=== PATIENT | female | born 1935 | race Caucasian/White ===

== ENCOUNTER 2016-08-01 11:42 | Emergency (ER) | payer MEDICARE, OTHER ==
--- NOTE | 2016-08-01 12:02 | ED.PDOC ---
History of Present Illness - General Chief Complaint: Blood Pressure Problem Stated Complaint: ELEVATED BP Time Seen by Provider: 08/01/16 11:57 Source: patient Exam Limitations: no limitations - History of Present Illness Initial Comments: PT WITH ELEVATED BP AT HOME. CALLED HH WHO WENT TO SEE HER. SBP > 200. TOOK HER MORNING MEDS WITH NO CHANGE. CAME TO ER FOR EVALUATION. Timing/Duration: 1-3 hours Severity: moderate Improving Factors: nothing Worsening Factors: nothing Associated Symptoms: shortness of breath Allergies/Adverse Reactions: Allergies Atorvastatin [From Lipitor] Allergy (Unknown, Unverified 10/09/12 08:52) listed swing bed adm 10/07/12 Calcitonin [From Miacalcin] Allergy (Unknown, Unverified 10/09/12 08:54) licted swing bed adm 10/07/12 Fenofibrate [From Tricor] Allergy (Unknown, Unverified 10/09/12 08:50) listed swing bed adm 10/07/12 Hydrocodone Allergy (Unknown, Verified 10/09/12 08:51) listed swing bed adm 10/07/12 Penicillins Allergy (Unverified 06/15/12 12:34) Home Medications: Ambulatory Orders Metoprolol Succinate [Metoprolol Succinate ER] 100 mg PO DAILY 08/24/12 Timolol [Betimol] 0.25 % OP DAILY 08/24/12 Famotidine [Pepcid AC] 20 mg PO BID 10/07/12 Metformin HCl [Fortamet] 500 mg PO DAILY #0 10/07/12 Phenol (Antiseptic) [Chloraseptic] 1.4 % MT 10/07/12 Tramadol HCl 50 - 100 mg PO PRN PRN 10/07/12 Methylprednisolone [Medrol Dose Carlos] 4 mg PO DAILY #1 tab 08/01/16 Review of Systems - Review of Systems Constitutional: States: other - WIGGINS, DIZZINESS. Denies: chills, fever EENTM: Denies: eye pain, blurred vision, ear pain Respiratory: States: short of breath. Denies: cough Cardiology: Denies: chest pain, palpitations Gastrointestinal/Abdominal: Denies: nausea, vomiting Genitourinary: Denies: dysuria, frequency Musculoskeletal: Denies: back pain, neck pain Neurological: States: headache. Denies: numbness, weakness Endocrine: States: no symptoms reported Hematologic/Lymphatic: States: no symptoms reported Past Medical History (General) - Patient Medical History Hx Seizures: No Hx Stroke: No Hx Asthma: No Hx of COPD: No Hx Cardiac Disorders: Yes - SVT Hx Congestive Heart Failure: No Hx Pacemaker: No Hx Hypertension: Yes Hx Diabetes: Yes Hx MRSA: No - Social History Hx Alcohol Use: No Hx Substance Use: No Hx Physical Abuse: No Hx Emotional Abuse: No Family Medical History - Family History Mother Family History: Unknown Physical Exam - Physical Exam General Appearance: Alert, Comfortable Eye Exam: bilateral normal Ears, Nose, Throat: hearing grossly normal, normal ENT inspection Neck: full range of motion, supple, normal inspection Respiratory: lungs clear, normal breath sounds, no respiratory distress Cardiovascular/Chest: regular rate, rhythm, no murmur Gastrointestinal/Abdominal: non tender, no organomegaly Back Exam: normal inspection, no CVA tenderness Extremity: normal range of motion, normal inspection Neurologic: other - A/A/A Skin Exam: normal color Lymphatic: no adenopathy Progress - Progress Progress: 08/01/16 12:09 O2 SAT 98% RA (NL) 08/01/16 14:29 PT C/O INTERMITTANT NUMBNESS L HAND WHICH HAS BEEN GOING ON FOR 1 MONTH. COMES AND GOES MULTIPLE TIMES/DAY. LUE NL, CAN REPRODUCE PAIN PALPATING THE L POST THORAX. 08/01/16 14:36 FEELS MUCH BETTER. BP HAS BEEN STABLE. - EKG/XRAY/CT EKG: Sinus - RATE 75, NL AXIS, NL INTERVALS, NO ST T WAVE CHANGES, NAIP, NO OLD FOR COMPARISON XRAY: chest - JOSE J Departure - Departure Clinical Impression: Elevated blood pressure, Chronic hypertension, Radiculopathy affecting upper extremity Disposition: Discharge to Home or Self Care Condition: Fair Instructions: DI for Cervical Radiculopathy Prescriptions: Methylprednisolone [Medrol Dose Carlos] 4 mg PO DAILY #1 tab Home Medications: Ambulatory Orders Metoprolol Succinate [Metoprolol Succinate ER] 100 mg PO DAILY 08/24/12 Timolol [Betimol] 0.25 % OP DAILY 08/24/12 Famotidine [Pepcid AC] 20 mg PO BID 10/07/12 Metformin HCl [Fortamet] 500 mg PO DAILY #0 10/07/12 Phenol (Antiseptic) [Chloraseptic] 1.4 % MT 10/07/12 Tramadol HCl 50 - 100 mg PO PRN PRN 10/07/12 Methylprednisolone [Medrol Dose Carlos] 4 mg PO DAILY #1 tab 08/01/16
--- NOTE | 2016-08-01 13:29 | RAD ---
EXAM DESCRIPTION: XR CHEST 1 VIEW CLINICAL HISTORY: SOB COMPARISON: None TECHNIQUE: Single view chest FINDINGS: Cardiomegaly. Lungs are clear. 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 No pleural effusion or pneumothorax. IMPRESSION: Cardiomegaly, otherwise unremarkable with no evidence of pulmonary edema, volume overload or pneumonia. Electronically signed by: Jake Cuadra MD 08/01/2016 13:28
[2016-08-01 15:48] VITALS: O2SAT 98
[2016-08-01 15:50] VITALS: BP 162/78
== END 2016-08-01 15:35 | disposition home or self-care (01) ==
LOC: ER 11:42
DX: I10 Essential (primary) hypertension (principal); M54.12 Radiculopathy, cervical region; I47.1 Supraventricular tachycardia; E11.9 Type 2 diabetes mellitus without complications; Z79.899 Other long term (current) drug therapy; Z88.0 Allergy status to penicillin; Z88.8 Allergy status to other drugs, medicaments and biological substances

== ENCOUNTER 2016-12-14 16:52 | Emergency (ER) | payer MEDICARE, OTHER ==
--- NOTE | 2016-12-14 17:04 | ED.PDOC ---
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 Occurred: other - 6 months ago Pain - Upper Extremity: moderate: Upper arm, right Method of Injury: other - no injury Improving Factors: nothing Allergies/Adverse Reactions: Allergies Atorvastatin [From Lipitor] Allergy (Unknown, Unverified 10/09/12 08:52) listed swing bed adm 10/07/12 Calcitonin [From Miacalcin] Allergy (Unknown, Unverified 10/09/12 08:54) licted swing bed adm 10/07/12 Fenofibrate [From Tricor] Allergy (Unknown, Unverified 10/09/12 08:50) listed swing bed adm 10/07/12 Hydrocodone Allergy (Unknown, Verified 10/09/12 08:51) listed swing bed adm 10/07/12 Penicillins Allergy (Unverified 06/15/12 12:34) Home Medications: Ambulatory Orders Metoprolol Succinate [Metoprolol Succinate ER] 100 mg PO DAILY 08/24/12 Timolol [Betimol] 0.25 % OP DAILY 08/24/12 Famotidine [Pepcid AC] 20 mg PO BID 10/07/12 Metformin HCl [Fortamet] 500 mg PO DAILY #0 10/07/12 Phenol (Antiseptic) [Chloraseptic] 1.4 % MT 10/07/12 Tramadol HCl 50 - 100 mg PO PRN PRN 10/07/12 Methylprednisolone [Medrol Dose Carlos] 4 mg PO DAILY #1 tab 08/01/16 Tramadol HCl 50 mg PO TID PRN #30 tab 12/14/16 predniSONE 10 mg PO BID #14 tab 12/14/16 Review of Systems - Review of Systems Constitutional: States: weakness. Denies: chills, diaphoresis, fever EENTM: States: no symptoms reported Respiratory: States: no symptoms reported Gastrointestinal/Abdominal: States: no symptoms reported Genitourinary: States: no symptoms reported Musculoskeletal: States: see HPI Skin: States: no symptoms reported Neurological: States: see HPI, numbness, paresthesia - left upper extrmity Endocrine: States: no symptoms reported Hematologic/Lymphatic: States: no symptoms reported Past Medical History (General) - Patient Medical History Hx Seizures: No Hx Stroke: No Hx Asthma: No Hx of COPD: No Hx Cardiac Disorders: Yes - SVT Hx Congestive Heart Failure: No Hx Pacemaker: No Hx Hypertension: Yes Hx Diabetes: Yes Hx MRSA: No Surgical History: cholecystectomy, other - hysterectomy,colon,knee - Social History Hx Alcohol Use: No Hx Substance Use: No Hx Physical Abuse: No Hx Emotional Abuse: No - Activities of Daily Living Patient Lives Alone: Yes - son lives across her house Family Medical History - Family History Mother Family History: Unknown Physical Exam - Physical Exam General Appearance: Alert, Comfortable, No apparent distress Eyes, Ears, Nose, Throat Exam: PERRL/EOMI, normal ENT inspection, TMs normal, pharynx normal Neck: non-tender, full range of motion, supple Cardiovascular/Respiratory: regular rate, rhythm, no M/R/G, normal peripheral pulses, no JVD, normal breath sounds Abdominal Exam: non-tender, no organomegaly Back Exam: normal inspection, no CVA tenderness, no vertebral tenderness Shoulder Exam: normal inspection, no evidence of injury Elbow/Forearm Exam: normal inspection, no evidence of injury Wrist Exam: normal inspection, no evidence of injury Hand Exam: normal inspection, no evidence of injury DTR: 2+: Brachioradialis, left, Brachioradialis, right Neuro/Tendon: normal sensation, responds to pain, motor deficit - weak 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 Mental Status: alert, oriented x 3 Skin Exam: normal color Progress - Progress Progress: 12/14/16 19:57 Vital Signs - 8 hr 12/14/16 17:01 Temperature 98.6 F Pulse Rate [ 88 Left Radial] Respiratory 16 Rate Blood Pressure 165/107 [Right Arm] O2 Sat by Pulse 95 Oximetry 12/14/16 17:15 EKG STAT 12/14/16 19:54 traMADol HCL (ER DISP) #6 [Ultram 50 mg ER Dispense #6 tablets] 1 ea PO ONCE PRN Laboratory Results - last 24 hr 12/14/16 12/14/16 12/14/16 17:30 17:30 17:30 WBC 7.7 RBC 3.90 L Hgb 13.5 Hct 40.2 MCV 103.0 H MCH 34.6 H MCHC 33.6 RDW 14.1 Plt Count 254 MPV 7.7 Absolute Neuts (auto) 4.60 Absolute Lymphs (auto) 1.90 Absolute Monos (auto) 0.90 H Absolute Eos (auto) 0.20 Absolute Basos (auto) 0.10 Neutrophils % 60.3 Lymphocytes % 24.2 Monocytes % 11.3 H Eosinophils % 3.2 Basophils % 1.0 Sodium 139 Potassium 4.9 Chloride 107 Carbon Dioxide 22 Anion Gap 14.9 BUN 28 H Creatinine 1.38 H BUN/Creatinine Ratio 20.3 H Random Glucose 100 Serum Osmolality 283.1 Calcium 9.5 Total Bilirubin 0.4 AST 15 ALT 10 Alkaline Phosphatase 43 Creatine Kinase 20 L Troponin I < 0.02 Serum Total Protein 6.7 Albumin 3.6 Globulin 3.1 Albumin/Globulin Ratio 1.2 TSH 1.75 12/14/16 19:59 recommende admission for pain control wants to stay home and follow up with primary md 12/17/2016 - EKG/XRAY/CT EKG: Sinus, no ST T wave changes Comments: heart rate -80 CT Ordered: Yes - no acute infarct;encephalomalacia frontal and occipital area old cva/radiol Departure - Departure Clinical Impression: Malaise and fatigue, Other spondylosis with radiculopathy, cervical region, 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) Time of Disposition: 19:59 Disposition: Discharge to Home or Self Care Condition: Good Instructions: DI for Cervical Radiculopathy Referrals: Steve Denise III, MD [Primary Care Provider] - 1-2 Weeks Prescriptions: predniSONE 10 mg PO BID #14 tab Tramadol HCl 50 mg PO TID PRN #30 tab PRN Reason: Pain Home Medications: Ambulatory Orders Metoprolol Succinate [Metoprolol Succinate ER] 100 mg PO DAILY 08/24/12 Timolol [Betimol] 0.25 % OP DAILY 08/24/12 Famotidine [Pepcid AC] 20 mg PO BID 10/07/12 Metformin HCl [Fortamet] 500 mg PO DAILY #0 10/07/12 Phenol (Antiseptic) [Chloraseptic] 1.4 % MT 10/07/12 Tramadol HCl 50 - 100 mg PO PRN PRN 10/07/12 Methylprednisolone [Medrol Dose Carlos] 4 mg PO DAILY #1 tab 08/01/16 Tramadol HCl 50 mg PO TID PRN #30 tab 12/14/16 predniSONE 10 mg PO BID #14 tab 12/14/16 Additional Instructions: Follow up with primary md 12/17/2016 call for appointment
[2016-12-14 17:09] VITALS: TEMP 98.6
--- NOTE | 2016-12-14 17:42 | CT ---
PROCEDURE: Head CLINICAL HISTORY: 81 years Female weakness COMPARISON: None. TECHNIQUE: Contiguous axial images obtained through the brain without IV contrast. This exam was performed according to our department optimization program which includes automated exposure control, adjustment of the mA and/or kv according to patient size and/or use of iterative reconstruction technique. FINDINGS: The ventricles and sulci are prominent consistent with atrophic changes. Microvascular ischemic changes. There are multiple areas of encephalomalacia with areas of previous infarct involving the frontal lobes bilaterally and both parietal lobes. Old infarct in the parieto-occipital junction on the left with additional focus of low attenuation also likely chronic seen on series 2 image 15. The possibility of a subacute area of infarct is thought less likely but not excluded. No midline shift or mass effect. No mass lesions. No acute hemorrhage. Atherosclerotic calcifications. No fluid or significant mucosal thickening in the visualized paranasal sinuses. No depressed calvarial fractures. IMPRESSION: Extensive areas of previous infarct/encephalomalacia bilaterally.. There is a low-attenuation focus in the occipital lobe on the left on series 2 image 15 that is likely related to encephalomalacia. The possibility of a subacute area of infarct is thought less likely but not entirely excluded. If this patient has symptoms related to this distribution consider further evaluation with MRI and diffusion imaging Generalized atrophy with microvascular ischemic changes. Electronically signed by: Angela Baltazar 12/14/2016 5:41 PM CDT
--- NOTE | 2016-12-14 17:52 | RAD ---
EXAM DESCRIPTION: Chest,1 View CLINICAL HISTORY: 81 years Female weak COMPARISON: 08/01/2016 FINDINGS: Stable cardiac enlargement. Flattening of the hemidiaphragms. No acute consolidation is noted. No pneumothorax or pleural fluid. IMPRESSION: Stable appearance of the chest Electronically signed by: Angela Baltazar 12/14/2016 5:51 PM CDT
[2016-12-14] MEDS ORDERED: KETOROLAC TROMETHAMINE INJ 30 MG/ML VIAL IV ONE (18:17)
[2016-12-14] MEDS ORDERED: KETOROLAC TROMETHAMINE INJ 30 MG/ML VIAL ONE (18:19)
[2016-12-14] MEDS ORDERED: MORPHINE SULFATE INJ 10 MG/ML VIAL IV ONE (19:52)
[2016-12-14] MEDS ORDERED: DEXAMETHASONE INJ 4 MG/ML VIAL IV ONE (19:53)
[2016-12-14] MEDS ORDERED: ORPHENADRINE CITRATE 30 MG/ML AMP IV ONE (19:54)
[2016-12-14] MEDS ORDERED: traMADol HCL 50 MG (ER DISP) # 6 TABS PO PRN (19:54)
[2016-12-14 21:00] VITALS: BP 176/96; O2SAT 96
== END 2016-12-14 20:59 | disposition home or self-care (01) ==
LOC: ER 16:52
DX: M43.02 Spondylolysis, cervical region (principal); R53.81 Other malaise; I69.919 Unspecified symptoms and signs involving cognitive functions following unspecified cerebrovascular disease; I10 Essential (primary) hypertension; E11.9 Type 2 diabetes mellitus without complications; I47.1 Supraventricular tachycardia; Z79.899 Other long term (current) drug therapy; Z88.0 Allergy status to penicillin; Z88.8 Allergy status to other drugs, medicaments and biological substances
CPT/HCPCS: 36415; 70450; 71010; 80053; 82550; 84443; 84484; 85025; 93005; J1100; J1885; J2270; J2360

== ENCOUNTER 2017-03-09 09:42 | Day surgery (SDC) | payer MEDICARE ==
[2017-03-09] MEDS ORDERED: SODIUM BICARBONATE VIAL 50 MEQ/50 ML VIAL ONE (10:36)
[2017-03-09] MEDS ORDERED: SODIUM CHLORIDE 0.9% 10 ML VIAL ONE (10:37)
[2017-03-09] MEDS ORDERED: methylPREDNISolone ACETATE 80 MG/ML VIAL ONE (10:37)
[2017-03-09] MEDS: LIDOCAINE 1% MPF 5 ML VIAL ONE ×2 (12:48→12:51)
[2017-03-09 13:41] VITALS: BP 148/85; TEMP 98; O2SAT 98
== END 2017-03-09 13:10 | disposition home or self-care (01) ==
LOC: AMB 09:42
PROVIDERS: ATTEND Anesthesiology Pain Medicine
DX: M54.12 Radiculopathy, cervical region (principal); M50.30 Other cervical disc degeneration, unspecified cervical region; I10 Essential (primary) hypertension; E66.9 Obesity, unspecified; Z88.0 Allergy status to penicillin; Z79.82 Long term (current) use of aspirin; Z79.899 Other long term (current) drug therapy
CPT/HCPCS: 64490; 76000; J1030

== ENCOUNTER → 2017-03-09 | Outpatient (CLI) | payer MEDICARE | END | disposition home or self-care (01) | LOC: YCFC.O 09:26 | PROVIDERS: ATTEND Anesthesiology Pain Medicine | DX: Z79.891 Long term (current) use of opiate analgesic (principal) ==

== ENCOUNTER 2017-03-24 11:32 | Observation (INO) | payer MEDICARE ==
--- NOTE | 2017-03-24 11:43 | ED.PDOC ---
History of Present Illness - General Chief Complaint: General Stated Complaint: dizzy Time Seen by Provider: 03/24/17 11:40 Source: patient, Vital Signs reviewed Exam Limitations: no limitations - History of Present Illness Initial Comments: Scarlet Apple 82 y/o female stated that she felt light headed ,dizzy and visions was blurry since yesterday but no weakness no ,no difficulty swallowing.slurred speech able to get up and walk with walker able to sleep last night but since her symptoms been constant decided to come to emergency room Timing/Duration: 24 hours Severity: moderate Improving Factors: nothing Worsening Factors: nothing Associated Symptoms: other - see hpi Allergies/Adverse Reactions: Allergies Atorvastatin [From Lipitor] Allergy (Unknown, Unverified 10/09/12 08:52) listed swing bed adm 10/07/12 Calcitonin [From Miacalcin] Allergy (Unknown, Unverified 10/09/12 08:54) licted swing bed adm 10/07/12 Fenofibrate [From Tricor] Allergy (Unknown, Unverified 10/09/12 08:50) listed swing bed adm 10/07/12 Hydrocodone Allergy (Unknown, Verified 10/09/12 08:51) listed swing bed adm 10/07/12 Penicillins Allergy (Unverified 06/15/12 12:34) Home Medications: Ambulatory Orders Metoprolol Succinate [Metoprolol Succinate ER] 100 mg PO BID 08/24/12 Timolol [Betimol] 0.25 % OP DAILY 08/24/12 Famotidine [Pepcid AC] 20 mg PO BID 10/07/12 Tramadol HCl 50 mg PO TID PRN #30 tab 12/14/16 Aspirin [Aspirin Adult Low Dose] 81 mg PO DAILY 03/24/17 Diltiazem HCl Coated Beads [Cartia Xt] 180 mg PO DAILY 03/24/17 Olmesartan Medoxomil 20 mg PO DAILY 03/24/17 Review of Systems - Review of Systems Constitutional: States: no symptoms reported EENTM: States: see HPI, blurred vision Respiratory: States: no symptoms reported Cardiology: States: no symptoms reported Gastrointestinal/Abdominal: States: no symptoms reported Genitourinary: States: no symptoms reported Musculoskeletal: States: no symptoms reported Skin: States: no symptoms reported Neurological: States: see HPI Endocrine: States: no symptoms reported Hematologic/Lymphatic: States: no symptoms reported Past Medical History (General) - Patient Medical History Hx Seizures: No Hx Stroke: Yes - old cva/ct Hx Dementia: No Hx Asthma: No Hx of COPD: No Hx Cardiac Disorders: Yes - SVT Hx Congestive Heart Failure: No Hx Pacemaker: No Hx Hypertension: Yes Hx Thyroid Disease: No Hx Diabetes: No Hx Gastroesophageal Reflux: No Hx Renal Disease: No Hx of HIV: No Hx MRSA: No Surgical History: cholecystectomy, other - Hysterectomy,colon knee - Vaccination History Hx Tetanus, Diphtheria Vaccination: Yes Hx Influenza Vaccination: Yes - Social History Hx Tobacco Use: No Hx Alcohol Use: No Hx Substance Use: No Hx Substance Use Treatment: No Hx Depression: No Hx Physical Abuse: No Hx Emotional Abuse: No Family Medical History - Family History Mother Family History: Unknown Physical Exam - Physical Exam General Appearance: Alert, Comfortable, No apparent distress Eye Exam: bilateral other - counting finger Ears, Nose, Throat: hearing grossly normal, normal ENT inspection Neck: non-tender, full range of motion, supple, normal inspection Respiratory: lungs clear, normal breath sounds Cardiovascular/Chest: normal peripheral pulses, regular rate, rhythm, no murmur Peripheral Pulses: radial,right: 2+, radial,left: 2+ Gastrointestinal/Abdominal: normal bowel sounds, non tender, soft, no organomegaly Back Exam: no CVA tenderness, no vertebral tenderness Extremity: normal range of motion, no pedal edema, no calf tenderness Neurologic: no motor/sensory deficits, alert, oriented x 3 Skin Exam: normal color, warm/dry Lymphatic: no adenopathy Progress - Progress Progress: 03/24/17 13:53 Vital Signs - 8 hr 03/24/17 11:46 Temperature 97.3 F L Pulse Rate [ 76 Left Brachial] Respiratory 20 Rate Blood Pressure 152/76 [Left Arm] O2 Sat by Pulse 96 Oximetry - Results/Orders Results/Orders: Laboratory Tests 03/24/17 03/24/17 03/24/17 12:00 12:00 12:00 WBC 9.6 RBC 4.20 Hgb 14.5 Hct 43.3 MCV 103.0 H MCH 34.5 H MCHC 33.5 RDW 13.4 Plt Count 231 MPV 8.2 Absolute Neuts (auto) 6.70 Absolute Lymphs (auto) 1.70 Absolute Monos (auto) 1.00 H Absolute Eos (auto) 0.20 Absolute Basos (auto) 0.10 Neutrophils % 69.9 Lymphocytes % 17.3 L Monocytes % 10.1 H Eosinophils % 1.8 Basophils % 0.9 Sodium 140 Potassium 5.3 H Chloride 107 Carbon Dioxide 25 Anion Gap 13.3 BUN 41 H Creatinine 1.51 H BUN/Creatinine Ratio 27.2 H Random Glucose 103 Serum Osmolality 289.8 Calcium 9.6 Total Bilirubin 0.6 AST 18 ALT 21 Alkaline Phosphatase 48 Troponin I < 0.02 Serum Total Protein 7.4 Albumin 3.8 Globulin 3.6 H Albumin/Globulin Ratio 1.1 - EKG/XRAY/CT EKG: Sinus, nonspecific ST T wave Chg, Unchanged from - 12/24/16 Comments: heart rate-73 XRAY: chest - no acute changes CT: right temporal to occipital lobe. CT Ordered: Yes - head-subacute infarct right mid cerbral artery and posterior r temp/occipit - Additional EKG/XRAY/Consults XRAY #2: chest - no acute changes noted Departure - Departure Clinical Impression: Blurry vision, bilateral, Dizziness Cerebrovascular accident (CVA) due to occlusion of posterior cerebral artery Qualifiers: Laterality of affected vessel: right Qualified Code(s): I63.531 - Cerebral infarction due to unspecified occlusion or stenosis of right posterior cerebral artery Time of Disposition: 14:17 Disposition: Admit Patient Condition: Fair Departure Forms: Patient Portal Self Enrollment Referrals: Steve Denise III, MD [Primary Care Provider] - 1-2 Weeks Home Medications: Ambulatory Orders Metoprolol Succinate [Metoprolol Succinate ER] 100 mg PO BID 08/24/12 Timolol [Betimol] 0.25 % OP DAILY 08/24/12 Famotidine [Pepcid AC] 20 mg PO BID 10/07/12 Tramadol HCl 50 mg PO TID PRN #30 tab 12/14/16 Aspirin [Aspirin Adult Low Dose] 81 mg PO DAILY 03/24/17 Diltiazem HCl Coated Beads [Cartia Xt] 180 mg PO DAILY 03/24/17 Olmesartan Medoxomil 20 mg PO DAILY 03/24/17 Decision To Admit - Decistion To Admit Decision to Admit Reason: Admit from ER Decision to Admit Date: 03/24/17 - D/W Cat Lei ANP/Hospitalist Decision to Admit Time: 14:18
--- NOTE | 2017-03-24 12:00 | RAD ---
EXAM DESCRIPTION: Chest,1 View CLINICAL HISTORY: pain COMPARISON: December 14, 2016 FINDINGS: The cardiomediastinal silhouette is unremarkable. There is no airspace consolidation or pleural effusion. The bronchovascular markings are within normal limits, and the lungs are not hyperinflated. There is no pneumothorax or acute fracture. IMPRESSION: Negative exam. Electronically signed by: Jacek Vazquez MD 03/24/2017 11:59 AM CDT
--- NOTE | 2017-03-24 13:19 | CT ---
EXAM DESCRIPTION: Head CLINICAL HISTORY: dizzy/blurry vision COMPARISON: December 14, 2016 TECHNIQUE: Noncontrast transaxial CT images of the head are obtained from base to vertex. This exam was performed according to our departmental dose-optimization program, which includes automated exposure control, adjustment of the mA and/or kV according to patient size and/or use of iterative reconstruction technique. FINDINGS: The midline structures are not displaced. Sulci are age-appropriate. There are areas of decreased attenuation in the periventricular white matter and the white matter of the centrum semiovale. Several areas of encephalomalacic change of low attenuation extending from the white matter of the cortical surface is seen involving the left parietal occipital lobe to medial high parietal lobe. Similar subtle malacic changes in the high mid left parietal lobe are seen. There are encephalomalacic changes involving the high right medial parietal lobe and right posterior parietal occipital lobe. Mild encephalomalacic changes involving the mid left frontal lobe towards the vertex are seen. There is a new area of decreased attenuation from white matter to cortical surface in the right occipital lobe region not seen on previous exam. There is no evidence of mass, mass-effect, hydrocephalus, or acute intracranial hemorrhage. No abnormal extra axial fluid collection is seen. Bone windows show no evidence of depressed skull fracture. Moderate calcifications of the intracranial carotid arteries are seen. The visualized paranasal sinuses are unremarkable. IMPRESSION: 1. Age-appropriate atrophy with evidence of old small vessel ischemic type changes seen. 2. Possible area of subacute ischemia in the distribution of the right middle cerebral artery involving the posterior right temporal to lateral occipital lobe. 3. Extensive areas of old infarct most pronounced in the left greater than right cerebral hemispheres. Areas of infarct are seen in the distribution of the anterior, middle, and posterior cerebral artery branches Electronically signed by: Sanket Mcconnell MD 03/24/2017 1:18 PM CDT
--- NOTE | 2017-03-24 14:56 | HP ---
SUPERVISING PHYSICIAN: Edgardo Dc M.D. CHIEF COMPLAINT: Visual disturbance. HISTORY OF PRESENT ILLNESS: This is an 82 year-old female patient who woke up yesterday morning and felt light-headed and dizzy. Her vision was blurry. She had no weakness or difficulty swallowing. She did not have any slurred speech and she was able to get up and walk with her walker, but her visual symptoms had not resolved and so she came to the Emergency Room. In the Emergency Room, a CT of the head was done and per radiology interpretation showed age- appropriate atrophy with evidence of old small vessel ischemic type changes seen , possibly area of subacute ischemia in the distribution of the right middle cerebral artery involving the posterior right temporal to lateral occipital lobe and extensive areas of old infarct most pronounced in the left greater than the right cerebral hemispheres. Areas of infarct are seen in the distribution of the anterior, middle and posterior cerebral artery branches. Her chest x-ray per radiology interpretation showed a negative exam. White count was normal at 9.6, H&H was stable at 14.5 and 43.3. Sodium 140, potassium 5.3, chloride 107, carbon dioxide 25, BUN 41, creatinine 1.51. Troponin was less than 0.02. I was called for admission. PAST MEDICAL HISTORY: 1. SVT versus PAT that was resolved with a beta dyllan. 2. Hyperlipidemia. 3. Hypertension. 4. Osteoporosis. 5. Cerebrovascular accident in 2014. 6. Restless leg syndrome. 7. Glaucoma. 8. 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 9. Diverticulitis. 10. Chronic renal insufficiency with a baseline creatinine of about 1.4 to 1.5. PAST SURGICAL HISTORY: 1. Cholecystectomy. 2. Bilateral total knee replacements. 3. Hysterectomy. 4. Sigmoid colectomy. OUTPATIENT MEDICATIONS: Per the EMR and awaiting verification. ALLERGIES: LIPITOR, MIACALCIN, PENICILLIN, TRICOR, GEMFIBROZIL, HYDROCODONE, PRAVASTATIN. SOCIAL HISTORY: She is . She denies any tobacco or illicit drug use. She drinks alcohol on a social basis only. REVIEW OF SYSTEMS: Denies fever, fatigue or weight changes. HEENT: Positive for visual disturbances with mostly inability to focus. Negative for ear pain, sore throat or sinus symptoms. RESPIRATORY: Negative for wheezing, coughing or shortness of breath. CARDIAC: Negative for chest pain, tachycardia or palpitations. GASTROINTESTINAL: Negative for abdominal pain, nausea, vomiting, diarrhea or constipation. GENITOURINARY: Negative for hematuria, dysuria or polyuria. NEUROLOGIC: Positive for dizziness. Negative for seizures or headache. PHYSICAL EXAMINATION: VITAL SIGNS: She is afebrile, heart rate 76, blood pressure 152/88, respiratory rate 20, O2 sat is 96% on room air. GENERAL: This is an 82 year-old female patient who is sitting in her hospital bed. She is in no acute distress. HEENT: Normocephalic and atraumatic. Pupils are equal and reactive. Oropharynx is clear. CHEST: Clear to auscultation bilaterally. CARDIOVASCULAR: Regular rate and rhythm. ABDOMEN: Soft, nondistended, non-tender. Bowel sounds are positive. EXTREMITIES: No cyanosis, clubbing or edema. NEUROLOGIC: She is awake, alert and oriented times three. She has no weakness on bilateral inserting operator. She can move both legs without any problems. Tongue is midline. LABORATORY: Labs and films are as per the History of Present Illness. ASSESSMENT: 1. Subacute ischemic stroke with visual disturbances and allergies to lipid lowering medications. 2. Hypertension. 3. Chronic renal insufficiency with a baseline creatinine of 1.4 to 1.5. 4. Hyperlipidemia. 5. Glaucoma. 6. History of cerebrovascular accident in 2015. 7. History of supraventricular versus paroxysmal atrial tachycardia which resolved with beta blockers. PLAN: We will place the patient in Observation. I have started her on the TIA stroke guidelines. We will restart her home medications. Her head of bed will be up 30 degrees and will do nursing bedside swallow study. If she tolerates that fine, will start her on a regular diet. She will be on telemetry. I will also discontinue her aspirin and start her on Plavix. We are unable to start her on any statin at this time due to her allergies and she is adamant that she does not want to take any of the lipid-lowering agents. I have also started her on Protonix for ulcer prophylaxis as well as Lovenox for DVT prophylaxis. I will try to get in touch with Dr. Vallecillo in the morning and I will try to do a consultation on him for morning. I have consulted Physical Therapy and [facility]. [facility] with be for possible stroke rehabilitation. Otherwise we will continue to monitor the patient closely and follow as needed. Dr. Dc is the collaborating physician available for consultation. [facility][id number] [facility]
[2017-03-24] MEDS ORDERED: SODIUM CHLORIDE 0.9% (FLUSH) 10 ML SYG IV PRN (16:37)
[2017-03-24] MEDS ORDERED: IV SET AND CAP CHANGE INJ INJ SCH (17:00)
[2017-03-24] MEDS ORDERED: traMADol HCL 50 MG TAB PO PRN (17:12)
[2017-03-24] MEDS ORDERED: ACETAMINOPHEN 325 MG TAB PO PRN (17:14)
--- NOTE | 2017-03-24 18:00 | PCM.CORE ---
Physician DVT/VTE - Prophylaxis Currently: Patient already on anticoagulation therapy - Nurse DVT Assessment & Total Each Risk Factor Represents 3 Points: Age over 75 years DVT Assessment Score: 3 - 5 or more Very High Risk Treatments: Early Ambulation *, Sequential Compression Device
[2017-03-24] MEDS: PANTOPRAZOLE SODIUM IV 40 MG VIAL IV SCH (18:54)
[2017-03-24] MEDS: ENOXAPARIN SODIUM 30 MG/0.3 ML SYG SUBCU SCH (18:55)
[2017-03-24] MEDS: CLOPIDOGREL 75 MG TAB PO SCH (18:55)
--- NOTE | 2017-03-24 19:27 | US ---
EXAM DESCRIPTION: Carotid Duplex CLINICAL HISTORY: 82 years, Female, subacute cva COMPARISON: None. FINDINGS: Sonographic grayscale, color and Doppler interrogation of the carotid and vertebral arteries was performed. Focal mixed plaque is seen of the left carotid bulb. Mild plaque is seen of the right carotid bulb. Systolic and diastolic arterial velocities are as follows: Right: CCA 60.9 cm/sec, 7.8 cm/sec ICA 79.4 cm/sec, 6.4 cm/sec with spectral broadening ECA, 44.2 cm/sec, 12.8 cm/s Vertebral antegrade Percent stenosis of the right bulb 20% ICA/ CCA = 1.3 Left: CCA 73.8 cm/sec, 17 cm/sec ICA 74.2 cm/sec, 17.9 cm/sec with spectral broadening ECA, 49.5 cm/sec, 5.5 cm/s Vertebral antegrade Percent stenosis of the left bulb 71% ICA/ CCA = 1.0 IMPRESSION: No hemodynamically significant stenosis of the carotid arteries. Rojas scale images demonstrate moderate plaque within the left carotid bulb with approximately 70% stenosis by area measurement. Given nonelevated velocities, this most likely represents mild narrowing. Vertebral flow is antegrade bilaterally. Electronically signed by: Rosales Rutherford MD 03/24/2017 7:26 PM CDT
[2017-03-24] MEDS ORDERED: FAMOTIDINE 20 MG TAB ONE (19:53)
[2017-03-24] MEDS: METOPROLOL SUCCINATE XL 100 MG TAB PO SCH (20:39)
[2017-03-24] MEDS: FAMOTIDINE 20 MG PO SCH (20:40)
[2017-03-25] MEDS: FAMOTIDINE 20 MG PO SCH (00:28)
[2017-03-25] MEDS: PANTOPRAZOLE SODIUM IV 40 MG VIAL IV SCH (06:16)
[2017-03-25] MEDS ORDERED: ASPIRIN EC 81 MG TAB PO SCH (09:00)
[2017-03-25] MEDS ORDERED: FAMOTIDINE 20 MG TAB PO SCH (09:00)
[2017-03-25] MEDS ORDERED: LORATADINE 10 MG TAB PO SCH (09:00)
[2017-03-25] MEDS: CLOPIDOGREL 75 MG TAB PO SCH (09:29)
[2017-03-25] MEDS: METOPROLOL SUCCINATE XL 100 MG TAB PO SCH ×2 (09:29→20:06)
[2017-03-25] MEDS: TIMOLOL MALEATE 0.25% BOTH_EYES SCH (09:29)
[2017-03-25] MEDS: diltiaZEM HCL CD 180 MG CAP PO SCH (09:29)
[2017-03-25] MEDS: OLMESARTAN MEDOXOMIL 20 MG PO SCH (09:30)
[2017-03-25] MEDS ORDERED: FAMOTIDINE 20 MG TAB PO PRN ×2 (10:00→23:00)
[2017-03-25] MEDS ORDERED: LORATADINE 10 MG TAB PO PRN ×2 (10:00→23:00)
--- NOTE | 2017-03-25 11:23 | PN ---
SUPERVISING PHYSICIAN: Edgardo Dc MD DATE: 03/25/17 SUBJECTIVE: The patient is sitting up in chair in her room. Her son is at the bedside. She has no complaints of shortness of breath, chest pain, nausea or vomiting or diarrhea. She continues to have problems with her vision. OBJECTIVE: VITAL SIGNS: She is afebrile, heart rate 84, blood pressure 135/80, respiratory rate 18, O2 saturation is 96% on room air. CHEST: Clear to auscultation bilaterally. CARDIAC: Regular rate and rhythm. ABDOMEN: Soft, nondistended, non-tender. Bowel sounds are positive. NEUROLOGIC: She is awake, alert and oriented times three. . LABORATORY: WBC 8.9, hemoglobin stable at 14.8, hematocrit 44.8, magnesium is slightly low at 1.7. Triglycerides 265. Total cholesterol 263. LDL is 148 and HDL 45. Still awaiting her chemistries. Carotid artery ultrasound per radiology interpretation shows no hemodynamically significant stenosis of the carotid arteries. Rojas-scale images demonstrate moderate plaque within the left carotid bulb with approximately 70% stenosis by area measurement and the percentage of stenosis to the right bulb is 20%. Given the non-elevated velocities, this most likely represents a mild narrowing. All other labs and films have been reviewed via the EMR. ASSESSMENT: 1. Subacute ischemic stroke with visual disturbances and allergies to lipid lowering medications. 2. Hypertension. 3. Chronic renal insufficiency with a baseline creatinine of 1.4 to 1.5. 4. Hyperlipidemia. 5. Glaucoma. 6. History of cerebrovascular accident in 2014. 7. History of supraventricular versus paroxysmal atrial tachycardia that resolved with beta blockers PLAN: We will continue present supportive care. Floridalma Key, our [employer], will contact [facility] for outpatient physical therapy and home health. Initially, I was going to consult Dr. Vallecillo, neurologist, for recommendations on this patient. [place] of the [place] this time. So I spoke with Dr. King Jain, technical sme, and he recommended I call Dr. Campbell, her assistant sales center manager and retinal specialist in [place]. Per the patient, she has not seen her retina specialist in 2 years and recommendations are that she should see an assistant sales center manager every [address] Jain recommended that she followup with Kumar Campbell within 2 weeks. I have gotten her an appointment with Dr. Campbell on Thursday, the , at 8:00 AM. Most likely, her vision disturbances are from her poorly controlled glaucoma as well as her medical noncompliance. We are sending records to Dr. Campbell's office. She will also need a followup with Dr. Denise. Her physical therapy evaluation showed that she had some weakness but most likely is related to her limited vision. We plan for discharge tomorrow and we will continue to monitor her closely and followup we needed. Dr. Dc is the collaborating physician available for consultation. #[id number] [facility]
[2017-03-25] MEDS: ENOXAPARIN SODIUM 30 MG/0.3 ML SYG SUBCU SCH (17:33)
[2017-03-26] MEDS ORDERED: PANTOPRAZOLE SODIUM TAB 40 MG PO SCH (06:30)
[2017-03-26] MEDS: TIMOLOL MALEATE 0.25% BOTH_EYES SCH (08:30)
[2017-03-26] MEDS: diltiaZEM HCL CD 180 MG CAP PO SCH (08:30)
[2017-03-26] MEDS: METOPROLOL SUCCINATE XL 100 MG TAB PO SCH (08:30)
[2017-03-26] MEDS: CLOPIDOGREL 75 MG TAB PO SCH (08:30)
[2017-03-26] MEDS: OLMESARTAN MEDOXOMIL 20 MG PO SCH (08:30)
[2017-03-26] MEDS ORDERED: MAGNESIUM SULFATE PREMIX 2GM 2 GM in PREMIX BAG 1 BAG IVPB ONE (08:49)
[2017-03-26] MEDS ORDERED: MAGNESIUM SULFATE PREMIX 2GM 50 ML IVPB ONE (09:20)
[2017-03-26 10:34] VITALS: BP 137/80; TEMP 98; O2SAT 96
--- NOTE | 2017-03-27 16:19 | DS ---
SUPERVISING PHYSICIAN: Edgardo Dc M.D. DISCHARGE DIAGNOSIS: 1. Subacute ischemic stroke with visual disturbances felt to be more related to chronic history of open-angle glaucoma with poor medical compliance with the patient having an allergy to lipid lowering medications and being started on aspirin and Plavix prior to discharge with followup plan to be seen by Dr. Campbell in regards to treatment of the underlying glaucoma. 2. Hypertension. 3. Chronic renal insufficiency with a baseline creatinine between 1.4 to 1.5. 4. Hyperlipidemia. 5. Glaucoma chronic with poor medical compliance resulting in visual disturbances as noted in #1. 6. History of previous cerebrovascular accidents in 2015. 7. History of supraventricular versus paroxysmal atrial tachycardia that resolved with beta blockers. HISTORY OF PRESENT ILLNESS: Ms. Apple is an 82 year-old female patient that woke up the day before admission in the morning and felt light- headed and dizzy. Her vision was blurry. She had no notable weaknesses or any difficulty swallowing. She did have some slurred speech but was able to get up and walk with her walker, but her visual symptoms had not resolved and so she came to the Emergency Room. In the Emergency Room, a CT of the head without contrast was completed and per radiology interpretation showed age- appropriate atrophy with evidence of old small vessel ischemic type changes seen , possibly area of subacute ischemia in the distribution of the right middle cerebral artery involving the posterior right temporal to lateral occipital lobe and extensive areas of old infarct most pronounced in the left greater than the right cerebral hemispheres. Areas of infarct are seen in the distribution of the anterior, middle and posterior cerebral artery branches. Her chest x-ray per radiology interpretation showed a negative exam. White count on admission did show normal at 9.6. Troponin was less than 0.02. The patient was admitted through the Emergency Department for close neurological monitoring. LABORATORY: CBC on admission showed 9.6 white count, at discharge 8.9. Hemoglobin and hematocrit were stable at 14.8 and 44.8 with platelet count of 212,000. Differential showed to be within normal limits with no left shift. Chemistries initially showed hyperkalemia at 5.3 but after treatment with IV fluids on admission prior to discharge, electrolytes had normalized. BUN 39, creatinine 1.53. MICROBIOLOGY: No specimens were submitted. RADIOLOGY: Chest x-ray in the Emergency Department prior to admission and per radiology interpretation showed a negative exam. She also had a carotid artery study completed along with a head CT study and per radiology interpretation the carotid artery study showed no hemodynamically significant stenosis of the carotid arteries. Rojas scale images demonstrated moderate plaque within the left carotid bulb with approximately 70% stenosis by area measurements felt to represent narrowing. The vertebral artery was antegrade bilaterally. HOSPITAL COURSE: Ms. Apple was admitted on 03/24/17 with concerns for stroke- like symptoms given that she had a change in vision and was dizzy. It was noted that the patient has not been compliant with her medication regimen and her treatment. The patient was noted to be without any significant weakness. She had a physical therapy evaluation that showed that she was without any difficulties. She had no problems swallowing. She had good blood pressure control and no recurrence of her symptoms. She was felt well enough that she could discharge to continue with home treatment as needed. PLAN: Ms. Scarlet Apple was discharged on 03/26/17 with instructions to followup with Dr. Campbell and Dr. Denise as scheduled in the office. She has to see Dr. Campbell on the at 1700 at 8:00 AM and then followup with Dr. Denise on 04/02/17 at 1430. She also has home health through [facility]. She was to return to the hospital should she have any concerning or worsening symptoms. Medications at discharge included: 1. Plavix 75 mg daily. 2. Tentative prescription of statins, however the patient refuses to take these. All other medications were resumed as prior to hospitalization. Diet at discharge was regular diet as tolerated. Activity is as tolerated. No driving until she is seen in followup with her eye doctor and as well as with her primary care physician, Dr. Denise. Condition at discharge was stable and improved. #[id number] [facility]
== END 2017-03-26 11:22 | disposition home health service (06) ==
LOC: ER 11:32 → MS 14:55 → INTOOBSV 14:55
PROVIDERS: ADMIT Nurse Practitioner Acute Care; ATTEND Nurse Practitioner Family
DX: H40.10X0 Unspecified open-angle glaucoma, stage unspecified (principal); I12.9 Hypertensive chronic kidney disease with stage 1 through stage 4 chronic kidney disease, or unspecified chronic kidney disease; N18.9 Chronic kidney disease, unspecified; E78.5 Hyperlipidemia, unspecified; M81.0 Age-related osteoporosis without current pathological fracture; G25.81 Restless legs syndrome; E83.42 Hypomagnesemia; E87.5 Hyperkalemia; R42 Dizziness and giddiness; Z86.73 Personal history of transient ischemic attack (TIA), and cerebral infarction without residual deficits; Z91.19 Patient's noncompliance with other medical treatment and regimen; Z79.82 Long term (current) use of aspirin; Z79.899 Other long term (current) drug therapy; Z86.718 Personal history of other venous thrombosis and embolism; Z96.653 Presence of artificial knee joint, bilateral; Z88.0 Allergy status to penicillin; Z88.5 Allergy status to narcotic agent; Z88.8 Allergy status to other drugs, medicaments and biological substances
CPT/HCPCS: 36415 ×3; 70450; 71010; 80048; 80053 ×2; 80061; 83735 ×2; 84484; 85025 ×2; 93005; 93880; 94760 ×9; 97116; 97162; G0378; G8978; G8979; J1650 ×2; J3475

== ENCOUNTER → 2017-04-06 | Outpatient (CLI) | payer MEDICARE ==
--- NOTE | 2017-04-07 00:51 | MRI ---
EXAM DATE: 04/06/2017 12:00 AM CDT. PROCEDURE: MR BRAIN WITHOUT IV CONTRAST. INDICATION: CEREBRAL INFARCTION. COMPARISON: CT head 03/24/2017. TECHNIQUE: Multiplanar multisequence images of the brain were acquired without the administration of intravenous contrast. FINDINGS: Focal regions of restricted diffusion is seen within the left frontal lobe in the region of the left middle frontal gyrus and inferior frontal gyrus. An additional region of restricted diffusion is seen in the posterior right temporal lobe. There is no hemorrhagic transformation. Old ischemic changes of the bilateral parietal lobes. Scattered T2/FLAIR white matter changes compatible with chronic small vessel ischemic disease. Mild generalized brain volume loss. Internal carotid and vertebrobasilar flow voids are identified. Prior bilateral lens replacements. Unremarkable paranasal sinuses and calvarium. IMPRESSION: Acute/subacute focal infarcts of the left frontal lobe, left MCA distribution, as well as the right posterior temporal lobe in a watershed distribution. Scattered old ischemic changes. Moderate chronic small vessel ischemic disease. Critical findings discussed with Dr. Steve Denise by Rosales Rutherford MD at 04/07/2017 12:49 AM CDT by phone. Electronically signed by: Rosales Rutherford MD 04/07/2017 12:50 AM CDT
== END | disposition home or self-care (01) ==
LOC: MRI 12:38
PROVIDERS: ATTEND Family Medicine
DX: I63.9 Cerebral infarction, unspecified (principal)

== ENCOUNTER → 2017-08-19 | Outpatient (CLI) | payer MEDICARE | LOC: GT 08:14 | PROVIDERS: ATTEND Internal Medicine | DX: G46.0 Middle cerebral artery syndrome (principal); I10 Essential (primary) hypertension; R13.0 Aphagia; N39.0 Urinary tract infection, site not specified; Z51.81 Encounter for therapeutic drug level monitoring ==

== ENCOUNTER 2017-08-20 10:23 | Emergency (ER) | payer MEDICARE ==
[2017-08-20] MEDS ORDERED: SODIUM CHLORIDE 0.9% 1000ML 1,000 ML IVS ONE (10:33)
--- NOTE | 2017-08-20 11:43 | CT ---
EXAM DESCRIPTION: Abdoment/Pelvis w/o Contrast CLINICAL HISTORY: 82 years, Female, gi bleed, cri, on blood thinners COMPARISON: Chest x-ray March 24, 2017 TECHNIQUE: CT of the abdomen and pelvis is performed according to our non contrast protocol. FINDINGS: Minimal dependent atelectasis in the lung bases. Small nodular lesion in the posterior segment left lower lobe is present which measures 5 mm. If there are no other significant risk factors, no CT follow-up is indicated for this lesion. For a smoker, 6 month follow-up chest CT might be considered. There is extensive coronary calcification. Heart is large. Liver, spleen, and pancreas are unremarkable on unenhanced images through the upper abdomen. Gallbladder is surgically absent. No inflammation around the pancreas or focal pancreatic lesion. No biliary ductal dilatation. Tiny accessory splenule is present. Right adrenal gland medial limb thickness is prominent which could be mild hyperplasia or small indistinct adenoma. Fatty mass in the left adrenal gland is seen consistent with myelolipoma measuring 3.8 cm. The body of the left adrenal gland appears thickened which could indicate indistinct adenoma or hyperplasia. The latter is favored. Renal cortical thinning is present bilaterally consistent with senescent changes and chronic renal parenchymal disease. Tiny 2 mm calcification in the anterior lower pole of left kidney may be a nonobstructing calculus. No hydronephrosis. Bilateral renal lesions are most likely cysts with CT density measurements ranging from 1.9 to 21 Hounsfield units. No aortic aneurysm. Ventral abdominal hernia contains a segment of the transverse colon and some omental fat inferiorly. No fluid or bowel wall thickening to suggest ischemia. Severe degenerative changes are seen in the lower lumbar spine. CT PELVIS: Moderate amount of fecal material seen in the colon and rectum. Bowel anastomotic staple line in the sigmoid region suggests previous partial sigmoidectomy. No ostomy site is seen. No inflammation around the cecum or terminal ileum. Appendix is not identified and may be surgically absent. Small bowel loops in the pelvis appear normal. Distal ureters and bladder are negative for stones. Uterus and ovaries are not seen and may be surgically absent. Coronal and sagittal reformatted images confirm the findings. Compressed sclerotic vertebral body at L4 is noted with vacuum disc phenomenon and some gas within the vertebral body raising the question of avascular necrosis. There is grade 1 anterolisthesis of L4 on L5 and prominent posterior disc/marginal osteophyte formation at the L3-4 level and L2-3 level. Large Schmorl's node in superior L3 is noted. Degenerative disc disease is prominent at T12-L1 with slight degenerative retrolisthesis of T12 on L1. Disks appear narrowing the lower T-spine. No high-grade spinal stenosis is evident. There is no lymphadenopathy, inflammation, or free fluid observed in the pelvis. IMPRESSION: Small 5 mm nodule in the left lower lobe may be postinflammatory granuloma. Left adrenal myelolipoma. Nonobstructing 2 mm left renal calculus. Bilateral renal lesions consistent with cysts. Ventral hernia containing a segment of transverse colon. Previous partial sigmoidectomy. Collapsed L4 vertebral body, possibly avascular necrosis. This exam was performed according to our departmental dose-optimization program, which includes automated exposure control, adjustment of the mA and/or kV according to patient size and/or use of iterative reconstruction technique. Electronically signed by: Ramos Mueller MD 08/20/2017 11:42 AM [facility]
[2017-08-20] MEDS ORDERED: cefTRIAXone SODIUM 1 GM in SODIUM CHL 0.9% 50ML MIN-BAG+ 50 ML IVPB ONE (11:52)
[2017-08-20] MEDS ORDERED: PANTOPRAZOLE SODIUM IV 40 MG VIAL IV ONE (11:53)
[2017-08-20] MEDS ORDERED: SUCRALFATE 1 GM/10 ML 1 GM UD PO ONE (11:53)
[2017-08-20] MEDS ORDERED: SODIUM CHL 0.9% 50ML MIN-BAG+ 50 ML IVPB ONE (12:01)
[2017-08-20] MEDS ORDERED: cefTRIAXone SODIUM 1 GM VIAL ONE (12:01)
[2017-08-20] MEDS ORDERED: FLUCONAZOLE 100 MG TAB PO ONE (13:19)
--- NOTE | 2017-08-20 13:39 | ED.PDOC ---
History of Present Illness - General Chief Complaint: GI Problem Stated Complaint: GI Bleed Time Seen by Provider: 08/20/17 10:28 Source: patient, EMS, intermediate records Exam Limitations: clinical condition - History of Present Illness Initial Comments: the patient is an 82-year-old female presenting to the emergency room secondary to 1-2 bloody stools over the last 12 hours. Stools were blood- streaked according to staff. The patient does not have any history of any recent GI bleeds but she is on blood thinners secondary to recurrent strokes. she does not appear to be having any pain. 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 She has apparently not been having any new symptoms. She does not appear to be in pain. According to staff the intermediate she is not different neurologically then she has been over the last month or so. The patient has had a fairly drastic functional decline over the last 5 months due to her previous strokes. She does take blood pressure medications. She does have a history of an arrhythmia but appears to be in a normal sinus rhythm here today. Timing/Duration: 4-6 hours Severity: mild Improving Factors: nothing Worsening Factors: nothing Associated Symptoms: denies symptoms Allergies/Adverse Reactions: Allergies Atorvastatin [From Lipitor] Allergy (Unknown, Unverified 10/09/12 08:52) listed swing bed adm 10/07/12 Calcitonin [From Miacalcin] Allergy (Unknown, Unverified 10/09/12 08:54) licted swing bed adm 10/07/12 Fenofibrate [From Tricor] Allergy (Unknown, Unverified 10/09/12 08:50) listed swing bed adm 10/07/12 Hydrocodone Allergy (Unknown, Verified 10/09/12 08:51) listed swing bed adm 10/07/12 Penicillins Allergy (Unverified 06/15/12 12:34) Home Medications: Ambulatory Orders Metoprolol Succinate [Metoprolol Succinate ER] 100 mg PO BID 08/24/12 Timolol [Betimol] 0.25 % OP DAILY 08/24/12 Aspirin [Aspirin Adult Low Dose] 81 mg PO DAILY 03/24/17 Diltiazem HCl Coated Beads [Cartia Xt] 180 mg PO DAILY 03/24/17 Olmesartan Medoxomil 20 mg PO DAILY 03/24/17 Clopidogrel Bisulfate [Plavix] 75 mg PO DAILY #30 tab 10/12/17 ALPRAZolam [Xanax] 0.25 mg PO BID 08/20/17 ALPRAZolam [Xanax] 0.25 mg PO Q12H PRN 08/20/17 Acetaminophen [Tylenol] 1,000 mg PO Q6H PRN 08/20/17 Oseltamivir Capsule [Tamiflu] 75 mg PO BID 08/20/17 Tramadol HCl 50 mg PO BID 08/20/17 Review of Systems - Review of Systems Review of Systems: 08/20/17 13:39 eview of systems is significantly limited secondary to patient's dementia. Most information is obtained from report from intermediate nurses and EMS. Constitutional: States: no symptoms reported EENTM: States: no symptoms reported Respiratory: States: no symptoms reported Cardiology: States: no symptoms reported Gastrointestinal/Abdominal: States: no symptoms reported Genitourinary: States: no symptoms reported Musculoskeletal: States: no symptoms reported Skin: States: no symptoms reported Neurological: States: see HPI Endocrine: States: no symptoms reported All other Systems: No Change from Baseline Past Medical History (General) - Patient Medical History Hx Seizures: No Hx Stroke: Yes Hx Dementia: No Hx Asthma: No Hx of COPD: No Hx Cardiac Disorders: Yes - SVT Hx Congestive Heart Failure: No Hx Pacemaker: No Hx Hypertension: Yes Hx Thyroid Disease: No Hx Diabetes: No Hx Gastroesophageal Reflux: No Hx Renal Disease: No Hx of HIV: No Hx MRSA: No - Vaccination History Hx Tetanus, Diphtheria Vaccination: Yes Hx Influenza Vaccination: - unknown Hx Pneumococcal Vaccination: - unknown - Social History Hx Tobacco Use: No Hx Alcohol Use: No Hx Substance Use: No Hx Substance Use Treatment: No Hx Depression: No Hx Physical Abuse: No Hx Emotional Abuse: No - Activities of Daily Living [facility] applicable[facility]:: [facility] Family Medical History - Family History Mother Family History: Unknown Physical Exam - Physical Exam General Appearance: Alert, Comfortable, No apparent distress Eye Exam: bilateral normal Ears, Nose, Throat: hearing grossly normal, normal ENT inspection, normal pharynx Neck: full range of motion, supple Respiratory: lungs clear, normal breath sounds, no respiratory distress, no accessory muscle use Cardiovascular/Chest: normal peripheral pulses, regular rate, rhythm, no edema Peripheral Pulses: radial,right: 2+, radial,left: 2+, dorsalis pedis,right: 2+, dorsalis pedis,left: 2+ Gastrointestinal/Abdominal: non tender - the patient does have a ventral hernia but it does not appear to be hurting her., soft Rectal Exam: other - rectal exam shows 1 small external hernia that does appear to be mildly excoriated but not currently bleeding. No mass palpable otherwise. Rectal exam does show stool and does appear to have a very small amount of blood tinge to it. Back Exam: no CVA tenderness Extremity: normal range of motion, non-tender, normal inspection, no pedal edema , normal capillary refill Neurologic: supervisor nuclear medicine II-XII nml as tested, alert, disoriented x 3, other - the patient does speak and every now and then one of her sentences make sense. For the most part which she says makes no sense. She is alert. She is interactive. Skin Exam: normal color Comments: Vital Signs - 24 hr 08/20/17 08/20/17 08/20/17 10:31 10:55 11:15 Temperature 96.5 F L Pulse Rate [ 88 83 Left Brachial] Respiratory 20 Rate Blood Pressure 93/56 108/55 [Left Arm] O2 Sat by Pulse 99 98 Oximetry 08/20/17 08/20/17 08/20/17 11:32 12:00 13:20 Temperature Pulse Rate [ 85 85 73 Left Brachial] Respiratory 20 20 16 Rate Blood Pressure 108/55 109/65 97/55 [Left Arm] O2 Sat by Pulse 99 98 100 Oximetry the patient's blood pressures do vary widely depending on how cooperative she is on the blood pressures being taken. For the most part when she is distracted , her blood pressure readings are in the 110s to 130s on the systolic end. When she is moving around they tend to read significantly lower. Progress - Progress Progress: 08/20/17 13:44 the patient is an 82-year-old female presenting with what is most likely a mild lower GI bleed. The patient appears to be asymptomatic at this point. Hemoglobin and hematocrit appear roughly stable since yesterday. BUN and creatinine are elevated which may partly be attributed to the GI bleed. The patient has received a liter of IV fluids. Her aspirin and Plavix are being held. She has received a dose of Carafate and Protonix. She does appear to have a significant urinary tract infection and has received a dose of Rocephin. Urine culture will be done.When she has a bowel movement it will need to be checked for C. difficile. Blood pressure readings vary wildly, primarily due to the patient becoming agitated and moving around significantly when the cuff is trying to take a reading. When she cooperates her systolic blood pressures run around 120. When she doesn't they can range from 95-160. she has shown no evidence of any continued bleeding since her arrival here. she does appear to be a full code at this time. Given her comorbidities and poor functional status, further discussions with family may be warranted in the very near future to determine exactly how aggressive they want to be with her treatments and advanced directive planning. At this point in time, if the patient were to show evidence of a resumption of significant bleeding then more aggressive care would need to be given including the possibility of blood transfusions and transfer for GI evaluation. Endoscopy at this time, given the fact that she appears to be currently stable, is not advisable given her tenuous mental status and the possible deleterious effects of sedatives required for the procedure. admit for observation for above reasons and treatment for above reasons. - Results/Orders Results/Orders: 08/20/17 11:52 cdiff [CLOSTRIDIUM DIFFICILE AG/TOXIN] Stat 08/20/17 12:25 URINE CULTURE W/COLONY COUNT Stat Laboratory Results - last 24 hr 08/20/17 08/20/17 08/20/17 10:44 10:44 10:44 WBC RBC Hgb Hct MCV MCH MCHC RDW Plt Count MPV Absolute Neuts (auto) Absolute Lymphs (auto) Absolute Monos (auto) Absolute Eos (auto) Absolute Basos (auto) Neutrophils % Lymphocytes % Monocytes % Eosinophils % Basophils % PT 11.0 INR 0.970 PTT (SP) 25.7 D-Dimer, Quantitative 605 H* Sodium 141 Potassium 4.9 Chloride 108 Carbon Dioxide 22 Anion Gap 15.9 BUN 84 H D Creatinine 3.04 H BUN/Creatinine Ratio 27.6 H Random Glucose 107 H Serum Osmolality 307.2 H Lactic Acid 1.9 Calcium 9.1 Total Bilirubin 0.7 AST 17 ALT 11 Alkaline Phosphatase 73 Creatine Kinase 20 L CK-MB (CK-2) 0.9 CK-MB (CK-2) % Not Reportable Troponin I < 0.02 Serum Total Protein 6.3 L Albumin 3.2 Globulin 3.1 Albumin/Globulin Ratio 1.0 L Amylase 55 Lipase 27 Urine Color Urine Appearance Urine pH Ur Specific [place] Urine Protein Urine Glucose (UA) Urine Ketones Urine Blood Urine Nitrite Urine Bilirubin Urine Urobilinogen Ur Leukocyte Esterase Urine RBC Urine WBC Ur Epithelial Cells Amorphous Sediment Urine Bacteria Urine Yeast 08/20/17 08/20/17 10:44 12:25 WBC 13.6 H D RBC 3.45 L Hgb 11.3 L Hct 34.3 L MCV 99.4 H MCH 32.7 H MCHC 33.0 RDW 15.1 H Plt Count 350 MPV 8.7 Absolute Neuts (auto) 10.90 H Absolute Lymphs (auto) 1.30 Absolute Monos (auto) 1.20 H Absolute Eos (auto) 0.10 Absolute Basos (auto) 0.10 Neutrophils % 80.5 H Lymphocytes % 9.2 L Monocytes % 9.0 Eosinophils % 0.6 L Basophils % 0.7 PT INR PTT (SP) D-Dimer, Quantitative Sodium Potassium Chloride Carbon Dioxide Anion Gap BUN Creatinine BUN/Creatinine Ratio Random Glucose Serum Osmolality Lactic Acid Calcium Total Bilirubin AST ALT Alkaline Phosphatase Creatine Kinase CK-MB (CK-2) CK-MB (CK-2) % Troponin I Serum Total Protein Albumin Globulin Albumin/Globulin Ratio Amylase Lipase Urine Color Yellow Urine Appearance Cloudy Urine pH 5.0 Ur Specific [place] 1.015 Urine Protein 100 H Urine Glucose (UA) Negative Urine Ketones Negative Urine Blood Moderate H Urine Nitrite Negative Urine Bilirubin Negative Urine Urobilinogen 0.2 Ur Leukocyte Esterase Small H Urine RBC 3-5 H Urine WBC Tntc H Ur Epithelial Cells 3-5 Amorphous Sediment Trace Urine Bacteria 1+ Urine Yeast Rare CT scan of abdomen and pelvis shows no source for a GI bleed. She does have a chronic ventral hernia that contains transverse colon but does not show any evidence of bowel ischemia. She is not tender over this area on exam. She has multiple chronic findings otherwise but no other explanation for any GI bleed. Departure - Departure Clinical Impression: Gastrointestinal bleeding Qualifiers: GI bleed type/associated pathology: unspecified gastrointestinal hemorrhage type Qualified Code(s): K92.2 - Gastrointestinal hemorrhage, unspecified Disposition: Admit Patient Home Medications: Ambulatory Orders Metoprolol Succinate [Metoprolol Succinate ER] 100 mg PO BID 08/24/12 Timolol [Betimol] 0.25 % OP DAILY 08/24/12 Aspirin [Aspirin Adult Low Dose] 81 mg PO DAILY 03/24/17 Diltiazem HCl Coated Beads [Cartia Xt] 180 mg PO DAILY 03/24/17 Olmesartan Medoxomil 20 mg PO DAILY 03/24/17 Clopidogrel Bisulfate [Plavix] 75 mg PO DAILY #30 tab 03/26/17 ALPRAZolam [Xanax] 0.25 mg PO BID 08/20/17 ALPRAZolam [Xanax] 0.25 mg PO Q12H PRN 08/20/17 Acetaminophen [Tylenol] 1,000 mg PO Q6H PRN 08/20/17 Oseltamivir Capsule [Tamiflu] 75 mg PO BID 08/20/17 Tramadol HCl 50 mg PO BID 08/20/17 Decision To Admit - Decistion To Admit Decision to Admit Reason: Medical Nature Decision to Admit Date: 08/20/17 Decision to Admit Time: 13:55
[2017-08-20 14:40] VITALS: BP 121/75; TEMP 96.2; O2SAT 99
== END 2017-08-20 14:40 | disposition short-term general hospital (02) ==
LOC: ER 10:23
DX: K92.2 Gastrointestinal hemorrhage, unspecified (principal); I10 Essential (primary) hypertension; I69.311 Memory deficit following cerebral infarction
CPT/HCPCS: 36415; 74176; 80053; 81001; 82150; 82550; 82553; 83605; 83690; 84484; 85025; 85379; 85610; 85730; 87086; 87088; 87186; 87324; 87449; J0696; J2060; J7030; J7050

== ENCOUNTER → 2017-09-02 | Outpatient (CLI) | payer MEDICARE | LOC: GT 06:56 | PROVIDERS: ATTEND Internal Medicine | DX: Z79.01 Long term (current) use of anticoagulants (principal) ==